=== PATIENT | female | born 1955 | race African-American/Black ===

== ENCOUNTER 2019-03-06 20:27 | Inpatient (IN) | payer OTHER ==
[~2019-03-06] VITALS: Ht 165.1 cm; Wt 75.9 kg
[~2019-03-06 20:27] MED LIST: GLIPIZIDE ER2.5 MG; HCTZ; ZOCOR 10 MG TAB10 MG
[2019-03-06 20:29] VITALS: BP 153/81
[2019-03-06] MEDS ORDERED: NORVASC 2.5 MG2.5 M1 PO (20:57)
[2019-03-06] MEDS ORDERED: ASA81BEC PO (20:57)
[2019-03-06] MEDS ORDERED: NEURONTIN100 MG PO (20:58)
[2019-03-06] MEDS ORDERED: MIRALAX119 GM PO (20:58)
[2019-03-06] MEDS ORDERED: HUMALOG100 UNIT/1 SUBQ (20:58)
[2019-03-06 21:01] LABS: ABSOLUTE NEUTROPHILS 13.6 thou/uL (1.4-8.2); BASOPHILS 0.6 % (0.0-2.0); HEMATOCRIT 43.9 % (37.0-47.0); HEMOGLOBIN 14.4 gm/dL (12.0-15.0); LYMPHOCYTES 6.3 % (24.0-44.0); MCH 28.6 pg (26.0-34.0); MCHC 32.9 g/dL (28.0-37.0); MCV 86.9 fL (80.0-100.0); MONOCYTES 4.1 % (1.0-8.0); PLATELET COUNT 245 thou/uL (150-400); RBC 5.04 mil/uL (4.20-5.00); RDW 13.8 % (10.5-14.5); WBC 15.3 thou/uL (4.0-11.0)
[2019-03-06 21:05] LABS: CALCIUM 10.3 mg/dL (8.5-10.1); CREATININE 0.9 mg/dL (0.6-1.0); POTASSIUM 3.8 mmol/L (3.5-5.1)
[2019-03-06 21:14] LABS: TROPONIN-I 0.07 ng/mL (<0.06)
[2019-03-06 21:27] LABS: URINE BILIRUBIN NEGATIVE (Negative); URINE BLOOD TRACE (Negative); URINE CLARITY CLEAR; URINE COLOR YELLOW; URINE GLUCOSE-RANDOM* 1+ (Negative); URINE KETONES TRACE (Negative); URINE NITRITE-REFLEX NEGATIVE (Negative); URINE PROTEIN (DIPSTICK) 1+ (Negative); URINE SPECIFIC GRAVITY >= 1.030 (1.005-1.035)
[2019-03-06 21:28] LABS: URINE LEUKOCYTES-REFLEX 1+ (Negative)
[2019-03-06 21:42] LABS: BACTERIA-REFLEX None Seen /HPF (None Seen); CASTS None Seen /LPF (None Seen); CRYSTALS None Seen /LPF (None Seen); MUCUS 0-3 Light strn/LPF (None Seen); SQUAMOUS 4-10 Moderate /LPF (0-3); URINE RBC 0-2 Rare /HPF (0-2); WBC CLUMPS Few (None Seen); YEAST-REFLEX Present (None Seen)
[2019-03-06 22:14] LABS: AMP/METHAMP Negative (Negative); BARBITURATES Negative (Negative); BENZODIAZEPINES Negative (Negative); COCAINE Negative (Negative); METHADONE Negative (Negative); OPIATES Negative (Negative); PCP Negative (Negative)
[2019-03-06 23:33] VITALS: BP 135/75
[2019-03-07 00:19] VITALS: BP 151/80
[2019-03-07] MEDS ORDERED: LEVEMIR100 UNIT/1 SUBQ (01:35)
[2019-03-07] MEDS ORDERED: GLUCOPHAGE1000 MG PO (01:37)
[2019-03-07] MEDS ORDERED: TOPROL XL50 MG PO (01:37)
[2019-03-07] MEDS ORDERED: SENNA PLUS TAB1 EACH PO (01:38)
[2019-03-07] MEDS ORDERED: TYLENOL EXTRA500 MG PO (01:39)
[2019-03-07] MEDS ORDERED: VITAMIN D1000 UNI2 PO (01:40)
[2019-03-07 04:00] LABS: HEMATOCRIT 35.8 % (37.0-47.0); MCH 28.7 pg (26.0-34.0); MCHC 33.1 g/dL (28.0-37.0); MCV 86.7 fL (80.0-100.0); RBC 4.13 mil/uL (4.20-5.00); RDW 13.8 % (10.5-14.5)
[2019-03-07 04:01] LABS: HEMOGLOBIN 11.8 gm/dL (12.0-15.0)
[2019-03-07 04:13] VITALS: BP 143/79
[2019-03-07 04:28] LABS: ANION GAP 10 mmol/L (7-16); BUN 15 mg/dL (7-18); CALCIUM 9.2 mg/dL (8.5-10.1); CHLORIDE 107 mmol/L (98-107); CO2 25 mmol/L (21-32); CREATININE 0.7 mg/dL (0.6-1.0); GLUCOSE 114 mg/dL (74-106); POTASSIUM 3.8 mmol/L (3.5-5.1); SODIUM 142 mmol/L (136-145); TROPONIN-I <0.06 ng/mL (<0.06)
[2019-03-07 07:37] VITALS: BP 152/86
--- NOTE | 2019-03-07 07:45 | NUR ---
PT ARRIVED TO UNIT APPROX 0015; CAME FROM [facility]. BASELINE MENTATION IS CONFUSED BUT FOLLOWS COMMANDS; SENT TO ER BY EMS D/T LETHARGY AND NOT EATING FOR 3 DAYS. FOUND TO HAVE UTI; STARTED ON IV FLUIDS AND ABX. WOULD OCCASIONALLY MUTTER 1-2 WORDS AND FOLLOW VERY SIMPLE COMMANDS BUT OTHER GILMAN JUST STARED AROUND; GRINDS TEETH OR CHEWS ON BLANKET. HAS BEEN SR ON TELE, NO TEMPS OVERNIGHT. NO APPARENT PAIN OR SOB. INCONT BOTH BOWEL AND BLADDER, SKIN INTACT. NO OTHER CONCERNS, SHIFT REPORT GIVEN AT 0700.
[2019-03-07 11:15] VITALS: BP 147/91
[2019-03-07 15:23] VITALS: BP 150/86
--- NOTE | 2019-03-07 15:33 | NUR ---
PT WITH POOR APPETITE...ATE 10% OF BREAKFAST BUR 95% OF LUNCH...NEEDS TO BE FED...SPEECH TRIED SWALLOW EVAL BUT SHE WAS TOO TIRED TO EVALUATE...WILL TRY AGAIN SATURDAY..
[2019-03-07 19:25] VITALS: BP 142/88
[2019-03-08] VITALS (7 sets, daily range): BP systolic 149–175; BP diastolic 67–98
[2019-03-08 05:27] LABS: BASOPHILS 0.5 % (0.0-2.0); EOSINOPHILS 1.6 % (0.0-3.0); HEMATOCRIT 36.5 % (37.0-47.0); HEMOGLOBIN 12.5 gm/dL (12.0-15.0); LYMPHOCYTES 30.3 % (24.0-44.0); MCH 29.7 pg (26.0-34.0); MCHC 34.2 g/dL (28.0-37.0); MCV 86.9 fL (80.0-100.0); MONOCYTES 8.4 % (1.0-8.0); PLATELET COUNT 189 thou/uL (150-400); POLYS 59.2 % (36.0-66.0); RBC 4.19 mil/uL (4.20-5.00); RDW 14.1 % (10.5-14.5); WBC 5.1 thou/uL (4.0-11.0)
[2019-03-08 05:37] LABS: ALBUMIN 2.8 g/dL (3.4-5.0); CALCIUM 9.1 mg/dL (8.5-10.1); CREATININE 0.7 mg/dL (0.6-1.0); MAGNESIUM 1.5 mg/dL (1.8-2.4); PHOSPHORUS 3.9 mg/dL (2.5-4.9); POTASSIUM 3.6 mmol/L (3.5-5.1); TOTAL BILIRUBIN 0.3 mg/dL (<0.1-1.0); TOTAL PROTEIN 6.1 g/dL (6.4-8.2)
--- NOTE | 2019-03-08 06:12 | NUR ---
ASSUMED CARE AT 1900. PT IN NO PAIN, NO S/S RESP DISTRESS OR NAUSEA. SLIGHTLY MORE ALERT THAN PREVIOUS NIGHT, WOULD OCCASIONALLY STATE FULL SENTENCES. MODERATE SWING TYPE LATHE OPERATOR AND LEG STRENGTH ON RIGHT, WEAK ON LEFT; BUT WOULD TRY TO FLEX FOOT AND SWING TYPE LATHE OPERATOR FINGERS. IVF INFUSING OVERNIGHT. HAD A MEDIUM SOFT/PASTY STOOL. INCONT MULTIPLE TIMES, REQUIRING A FULL BED CHANGE ONCE. CRUSHED HS MEDS IN APPLESAUCE, BUT PT TOOK A LONG TIME TO SWALLOW AND REQUIRED MULTIPLE PROMPTS; HELD MIRALAX BECAUSE SHE WAS ALSO HOLDING LIQUIDS IN HER MOUTH RATHER THAN SWALLOWING. LOW MAG THIS AM, OBTAINED ORDER FOR REPLACEMENT. NO OTHER CONCERNS, WILL CONTINUE TO MONITOR.
--- NOTE | 2019-03-08 13:10 | EKG ---
[address] [place] [address] ELECTROCARDIOGRAM REPORT Name: TROY NICOLE Room #: 361-P ADM IN M.R.#: [id number] Admission: 03/06/19 Attend Phys: Dickson Weiner MD Discharge: Date of : 53 Report #: [id number] THIS REPORT FOR: //name// [facility] ED Test Date: 2019-03-06 Test Time: 20:41:50 Pat Name: TROY ROLDAN Department: Room: [facility] Gender: F Snuff Blender: WG : 1955 Requested By: Eric Arteaga Order Number: [id number] MD: Toni Casillas Measurements Intervals [place] Rate: 124 P: 53 SC: 128 QRS: -42 QRSD: 85 T: 52 QT: 344 QTc: 494 Interpretive Statements Sinus tachycardia Left axis deviation Low voltage, extremity leads Abnormal R-wave progression, late transition Borderline prolonged QT interval No previous ECG available for comparison Electronically Signed On 03-08-2019 13:10:27 COMPUTER FIELD TECHNICIAN by Toni Casillas [email or web address] <ELECTRONICALLY SIGNED> By: Toni Casillas MD, [facility] 03/08/19 1310 40 40 Toni Casillas MD, [facility] /EPI
--- NOTE | 2019-03-08 16:44 | NUR ---
assumed care this am. awake in bed. disoriented. follows commands and denies pain. incontinent of urine. external female catheter tried but patient too restless and active in bed. sr on monitor. npo until cleared by speech, holds food in mouth and coughs after swallowing.
[2019-03-09] VITALS (9 sets, daily range): BP systolic 147–185; BP diastolic 65–99
--- NOTE | 2019-03-09 05:35 | NUR ---
Patient continued to be alert and oriented to person and place only and she was otherwise confused/ unable to answer appropriately. Patient slept intermittently through the night.
[2019-03-09 05:41] LABS: ABSOLUTE NEUTROPHILS 2.3 thou/uL (1.4-8.2); BASOPHILS 0.3 % (0.0-2.0); EOSINOPHILS 1.8 % (0.0-3.0); HEMATOCRIT 38.5 % (37.0-47.0); HEMOGLOBIN 12.8 gm/dL (12.0-15.0); LYMPHOCYTES 29.4 % (24.0-44.0); MCH 28.7 pg (26.0-34.0); MCHC 33.1 g/dL (28.0-37.0); MCV 86.5 fL (80.0-100.0); MONOCYTES 9.2 % (1.0-8.0); PLATELET COUNT 201 thou/uL (150-400); POLYS 59.3 % (36.0-66.0); RBC 4.45 mil/uL (4.20-5.00); RDW 14.1 % (10.5-14.5); WBC 3.9 thou/uL (4.0-11.0)
[2019-03-09 06:05] LABS: ALBUMIN 2.9 g/dL (3.4-5.0); CALCIUM 9.2 mg/dL (8.5-10.1); CREATININE 0.6 mg/dL (0.6-1.0); MAGNESIUM 2.1 mg/dL (1.8-2.4); PHOSPHORUS 4.4 mg/dL (2.5-4.9); POTASSIUM 3.5 mmol/L (3.5-5.1); TOTAL BILIRUBIN 0.4 mg/dL (<0.1-1.0); TOTAL PROTEIN 6.4 g/dL (6.4-8.2)
--- NOTE | 2019-03-09 12:37 | NUR ---
DISCHARGE PLANNING. PATIENT RESIDES AT [facility], [facility] UNIT. PLAN IS FOR PATIENT TO RETURN TO [facility] ONCE MEDICALLY READY. CLINCAL UPDATES FAXED TO [facility]IA[facility] FOR [facility]. CALL PLACED TO [facility] TO NOTIFY. UNIT SW AWARE. FOLLOWING.
--- NOTE | 2019-03-09 13:00 | NUR ---
PT WAS COUGHING AND FOUND TO HAVE STUFFED A KLEENEX IN HER MOUTH.. STAFF REMOVED KLEENEX AND SUCTIONED HER...VIDEO SWALLOW WAS ALSO DONE AND IT WAS RECOMMENDED THAT SHE REMAIN NPO AT PRESENT..
--- NOTE | 2019-03-09 13:16 | NUR ---
INITIAL ASSESSMENT: Received consult. TABITHA reviewed chart and spoke with nursing and attending physician. Pt was admitted from [facility] due to sepsis. 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 TABITHA notified Louie Mcbride with the [facility] Public Fire Control Technician G s Office. Provided updates. Verbal consents obtained over the weekend through management consultant PA office. TABITHA requested guardianship ppwk to be faxed to [facility] to place on pt's chart. Pt to have a video swallow tomorrow. enterprise resource planner to fax clinical info to [place] for review. TABITHA is following to assist as needed with discharge planning.
--- NOTE | 2019-03-09 19:44 | NUR ---
PT WAS REPORTED TO HAVE FALLEN LAST AND TWICE TODAY AT [facility]. SHE REPORTS NOT USING ANY ASSISTED DEVICES PRIOR TO ADMISSION..DENIES PAIN AT PRESENT..
--- NOTE | 2019-03-10 02:07 | NUR ---
Patient maintained NPO status for NOC shift. Patient is working towards discharge goals. Nursing will continue to monitor.
[2019-03-10 05:30] VITALS: BP 140/88
[2019-03-10 05:56] LABS: HEMATOCRIT 40.3 % (37.0-47.0); HEMOGLOBIN 13.3 gm/dL (12.0-15.0); MCH 28.4 pg (26.0-34.0); MCV 86.1 fL (80.0-100.0); RBC 4.68 mil/uL (4.20-5.00); RDW 13.9 % (10.5-14.5); WBC 3.6 thou/uL (4.0-11.0)
[2019-03-10 06:00] LABS: CALCIUM 9.5 mg/dL (8.5-10.1); CREATININE 0.8 mg/dL (0.6-1.0); POTASSIUM 3.7 mmol/L (3.5-5.1)
[2019-03-10 07:38] VITALS: BP 179/96
[2019-03-10 08:10] LABS: APTT 22.6 Seconds (24.5-32.8); PROTIME 10.3 Seconds (9.3-11.4)
[2019-03-10 10:25] VITALS: BP 164/81
--- NOTE | 2019-03-10 13:51 | NUR ---
TABITHA reviewed chart and spoke with nursing and attending physician. Pt needs a peg tube. TABITHA provided attending physician with contact number for pt's legal guardian ([facility]) for consent for peg tube. TABITHA left voice message for Maryjo Valenzuela at the PA office to provide update and to request copy of guardianship ppwk to and to discuss status of Medicaid application. TABITHA also left message for TABITHA Shaikh at [facility] to provide update and to ask about guardianship and Medicaid status. TABITHA is following to assist as needed with discharge planning.
[2019-03-10 15:16] VITALS: BP 171/84
--- NOTE | 2019-03-10 16:21 | NUR ---
Pt on bedrest throughout shift. A & O x 1. Obeys commands and opens eyes in response to words. NPO. Chewing on blankets throughout the day.
[2019-03-10 17:21] LABS: BE(vivo) -1.8 mmol/L (-2 to +3); HCO3 21.2 mmol/L (22.0-26.0); PCO2 31.6 mmHg (35.0-45.0); PO2 64.8 mmHg (80.0-100.0); pH 7.444 (7.360-7.450); sO2 93.7 % (92.0-98.0)
--- NOTE | 2019-03-10 18:24 | NUR ---
Assumed care approx. 0700 this AM. Plan was for pt to get PEG tube today, but AM Lovenox given so pt to go to IR tomorrow for feeding tube placement. Pt started foaming at the mouth with frothy, white/clear saliva later this afternoon. Pt suctioned with yankauer but continued to have thick saliva and was working hard to breathe. Nasopharyngeal suctioning attempted but was unable to advance the catheter and the pt started to bleed some. HR sustaining 140-150. O2 sat dropped to 88%- 2LNC put on pt. Dr. Skinner notified of the situation. Orders for STAT chest x-ray for poss aspiration, STAT ABG and Q4H albuterol treatments ordered. Secretions became bloody, but likely due to trauma from the nasopharyngeal suction. Saliva secretions are back to white/clear. Results called back to Dr. Skinner. HR has been sustaining 130's-[address] Skinner ordered 2mg Morphine IV push ONETIME for anxiety. Will administer once verified by pharmacy and continue to monitor HR, breathing and secretions. Pt slowly progressing toward plan of care goals.
[2019-03-10 19:25] VITALS: BP 178/100
[2019-03-10 23:40] VITALS: BP 163/96
--- NOTE | 2019-03-10 23:41 | NUR ---
ASSUMED CARE AT 2300, ASSESSMENT COMPLETED. PT AWAKE IN BED, HAS FREQ CONGESTED COUGH WITH FROTHY WHITE SPUTUM. LUNGS COARSE. SUCTIONED PATIENT. IVF INFUSING. ST IN THE 120'S ON TELE. WILL CONTINUE TO MONITOR.
[2019-03-11 04:00] VITALS: BP 139/80
[2019-03-11 06:08] LABS: CALCIUM 9.2 mg/dL (8.5-10.1); CREATININE 0.8 mg/dL (0.6-1.0); MAGNESIUM 1.6 mg/dL (1.8-2.4); POTASSIUM 3.3 mmol/L (3.5-5.1)
[2019-03-11 07:29] VITALS: BP 147/83
--- NOTE | 2019-03-11 12:20 | NUR ---
TABITHA reviewed chart and spoke with nursing and attending physician. Paperwork received from the [facility] Public Food Critic's office for physician to complete and fax back for PA's signature, for consent for peg tube placement. Attending physician completed. TABITHA faxed to PA office and confirmed received with Ally. Awaiting signature from PA at this time. Signed consent to be faxed back to TABITHA. Pt will have peg tube placed today. TABITHA is following to assist as needed with discharge planning.
[2019-03-11 16:21] VITALS: BP 146/67
[2019-03-11 19:21] VITALS: BP 172/80
[2019-03-12] VITALS (7 sets, daily range): BP systolic 138–191; BP diastolic 61–111
--- NOTE | 2019-03-12 03:39 | NUR ---
ASSUMED CARE FROM DAY SHIFT PT ALERT AND ORIENTED TO SELF , VERBAL AT TIMES, NPO DUE ASPIRATION AND AM PEG TUBE PLACEMENT. PT INCONTINENT OF LARGE AMOUNT OF YELLOW URINE. PT PULLING AT TELEM WIRES AND 02 , SAT 98 ON ROOM AIR THEREFORE 02 WAS TAKEN OFF DUE PT CONTINUE TO PULL OFF OF FACE. ATTEMPTED TO TURN PT ,BUT PT CONITNUELY MOVE BACK AND FORTH IN BED. SKIN INTACT , BUT WILL CONITNUE TO MONITOR TURN STATUS. PHERESIS SPECIALIST SHOWS NSR 70 'S . WILL CONITUE WITH CURRENT PLAN OF CARE , PT RESTING WELL THROUGHOUT HOURLY ROUNDS.
[2019-03-12 06:17] LABS: CALCIUM 9.5 mg/dL (8.5-10.1); CREATININE 0.7 mg/dL (0.6-1.0); POTASSIUM 3.8 mmol/L (3.5-5.1)
--- NOTE | 2019-03-12 10:44 | NUR ---
TABITHA reviewed chart and spoke with nursing and attending physician. Pt to have peg tube placed today. TABITHA received signed consent forms late yesterday and provided to pt's nurse to place on chart. TABITHA spoke with Vane at the [facility] office regarding pt's Medicaid. Vane states that she will follow up with their business office to determine status of her Medicaid application. Plan is for pt to return to [facility] when medically stable. TABITHA is following to assist as needed with discharge planning.
--- NOTE | 2019-03-12 16:17 | NUR ---
Assumed care approx. 0700 this AM. Pt to GI lab approx. 1245 today for PEG tube placement. Pt pulling at wires and IV tubing-pt has pulled cardiac leads off several times. PEG tube intact with abdominal binder to protect so pt doesn't pull out the PEG. Maintenance fluids infusing per orders. Pt up to chair before procedure..MAX ASSIST. Pt was able to stand and pivot. Fleets enema given-pt had a small to moderate soft BM shortly after. Pt slowly progressing toward plan of care goals.
[2019-03-12 20:27] LABS: HEMATOCRIT 42.3 % (37.0-47.0); MCH 28.8 pg (26.0-34.0); MCHC 33.1 g/dL (28.0-37.0); MCV 87.1 fL (80.0-100.0); RBC 4.85 mil/uL (4.20-5.00); RDW 13.9 % (10.5-14.5); WBC 8.5 thou/uL (4.0-11.0)
--- NOTE | 2019-03-13 02:17 | NUR ---
ASSUMED CARE OF PATIENT AT 1900. BP ELEVATED, TREATED WITH PRN HYDRALAZINE. COFFEE GROUND EMESIS TWICE THIS SHIFT, DR GALLEGOS NOTIFIED BOTH TIMES. STAT KUBM CXR AND LABS ORDERED. ALSO PLACED PEG TUBE TO DEPENDENT DRAINAGE, SMALL AMOUNT OF BROWN OUTPUT NOTED. ROUNDED ON FREQUENTLY. INCONTINENT OF URINE. NOT PROGRESSING TOWARDS POC GOALS.
[2019-03-13 02:40] VITALS: BP 168/94
[2019-03-13 07:55] VITALS: BP 167/101
[2019-03-13] MEDS ORDERED: LANTUS SUBQ (09:20)
[2019-03-13] MEDS ORDERED: HUMALOG100 UNIT/1 SUBQ (09:21)
[2019-03-13] MEDS ORDERED: CEFPODOXIM100 MG/5 M PO (09:21)
[2019-03-13 11:45] LABS: HEMATOCRIT 37.3 % (37.0-47.0); HEMOGLOBIN 12.4 gm/dL (12.0-15.0); MCH 28.7 pg (26.0-34.0); MCHC 33.2 g/dL (28.0-37.0); MCV 86.4 fL (80.0-100.0); RBC 4.32 mil/uL (4.20-5.00); RDW 13.6 % (10.5-14.5); WBC 6.3 thou/uL (4.0-11.0)
--- NOTE | 2019-03-13 12:48 | NUR ---
ASSUMED PATIENT CARE AT 0715. PATIENT SLEEPING AT THAT TIME. AWAKENED AT 0900. NONVERBAL AT PRESENT. HAD LARGE COFFEE GROUND EMESIS THROUGHOUT LAST NIGHT. 200 ML COFFEE GROUND GASTRIC CONTENTS IN BAG TODAY. NO EMESIS THIS MORNING. SPOKE WITH DR. MENDEZ REGARDING COFFEE GROUND EMESIS. DR. MENDEZ NOTIFIED MATILDE FISHER. MATILDE ROUNDED AND FLUSHED PEG TUBE. NO RESIDUAL BUT TUBE HAS BEEN CONNECTED TO DEPENDENT DRAINAGE. FLUID IN TUBING NOW CLEAR. GOT THE OK TO START TUBE FEEDINGS NOW. AWAITING ORDER FOR WHICH TUBE FEEDING TO USE. PATIENT RESTLESS AND MOVES AROUND ALOT IN BED. WILL NOT STAY ON HER SIDE. FALL PRECAUTIONS IN PLACE.
--- NOTE | 2019-03-13 13:51 | NUR ---
Nutrition: RD will order tube feeds of Glucerna 1.2 to slowly reach goal of 55 mL/hr. Pt is refeeding syndrome risk. Keep tube feeds at 20 mL/hr first 24 hrs and monitor K+, Mg, Phos-replete as appropriate.
--- NOTE | 2019-03-13 13:54 | NUR ---
DISCHARGE NOTE: TABITHA reviewed chart and spoke with nursing and attending physician. Discharge orders written for pt to return to [facility] today. meeting/event planner coordinated. TABITHA notified [facility] office case picker, Louie Mcbride, of discharge. Consent given for discharge. TABITHA notified by nursing that pt was having trouble with her peg tube. Awaiting input from GI about peg tube use and to determine if pt is able to tolerate tube feedings prior to discharge. meeting/event planner to fax discharge orders/summary to the [facility] office. If pt is not discharged today, and is ready over the weekend, contacte [facility] acute liaison to coordinate discharge. Pt will need w/c van transportation. Chart copy will need to be updated. Updated discharge orders/summary will need to be faxed to the facility. TABITHA is available to assist as needed. [facility]-- Liaison: [phone]
[2019-03-13 15:09] VITALS: BP 138/51
[2019-03-13 19:59] VITALS: BP 139/78
[2019-03-13 22:30] VITALS: BP 159/72
--- NOTE | 2019-03-14 02:06 | NUR ---
PATIENT ARRIVED VIA BED FROM 3W ROOM 361 TO ROOM 464 AT 2227 WITH NURSE AND WOODWORK TEACHER. PATIENT ALERT TO NAME AND PLEASANT. IVF INFUSING PER ORDER. ABDOMINAL BINDER IN PLACE FOR PROTECTION OF PEG TUBE. PATIENT MOVES SELF IN BED. RESTING QUIETLY AT TIME OF NOTE WILL MONITOR.
--- NOTE | 2019-03-14 04:37 | NUR ---
PATIENT ALERT AND ORIENTED TO SELF. TRANSFERED FROM [facility] AT 2227. IVF INFUSING W/O COMPLICATION. REMAINS NPO. BS MONITORED PER ORDER. PATIENT TURNS SELF. ABDOMINAL BINDER IN PLACE. TUBE FEEDING OF GLUCERNA TO BEGIN ON AM SHIFT STARTING AT 20ML/HR PER PEG WITH THE GOAL OF 55ML/HR. INCONTINENT OF B/B. RESTING QUIETLY. WILL MONITOR.
[2019-03-14 09:06] VITALS: BP 166/67
[2019-03-14 15:47] VITALS: BP 160/66
--- NOTE | 2019-03-14 16:50 | NUR ---
VITAL SIGNS STABLE. PEG TUBE FEEDING INITIATED AT 1035 RUNNING AT 20 ML/HR. WELL TOLERATED. NO RESIDUAL. MEDICATION GIVEN THOUGH PEG TUBE. LINE PATENT AND FLUSHING WITH 100 CC WATER. PT. IS CHEWING ON HER ARM, CLOTHES, IV LINE. IV TEAM INSERTED NEW IV AFTER OLD ONE INFILTRATED. IV SITE SECURED WITH TOWEL AND KURLEX. DISCHARGE ORDERS GIVEN BY DR. MENDEZ. PER CM NOTE TRIED TO CALL [facility]. NO RESPONSE. CALLED MAIN NUMBER. SPOKE TO CHARGE NURSE TO [employer]GANZISE TRANSPORTATION AND REPORT GIVEN. FAXED DISCHARGE SUMMMARY, ORDERS, PEG TUBE FEEDING ADVANCEMENT PER GI ORDER. TRANSPORTATION SCHEDULED BY WHEELCHAIR AROUND [id number]. MONITORING PATINET WILL ENDORSE TO IN HOME NANNY.
== END 2019-03-14 18:49 | DRG 871 ==
LOC: ER 20:27 → EROBS 21:35 → 3W 21:35 → 4W 03-13 22:38
PROVIDERS: Emergency Medicine; Hospitalist; Internal Medicine Gastroenterology; Nurse Practitioner Acute Care; Nurse Practitioner Family; ADMIT Internal Medicine
PROC: 0DH63UZ Insertion of Feeding Device into Stomach, Percutaneous Approach (ICD-10-PCS; principal; 2019-03-12)
DX: A41.9 Sepsis, unspecified organism (principal); G92 Toxic encephalopathy; J69.0 Pneumonitis due to inhalation of food and vomit; E43 Unspecified severe protein-calorie malnutrition; K29.81 Duodenitis with bleeding; K29.71 Gastritis, unspecified, with bleeding; N12 Tubulo-interstitial nephritis, not specified as acute or chronic; Z43.1 Encounter for attention to gastrostomy; I10 Essential (primary) hypertension; E11.9 Type 2 diabetes mellitus without complications; F03.90 Unspecified dementia, unspecified severity, without behavioral disturbance, psychotic disturbance, mood disturbance, and anxiety; E11.649 Type 2 diabetes mellitus with hypoglycemia without coma; R13.10 Dysphagia, unspecified; E87.6 Hypokalemia; E83.42 Hypomagnesemia; K20.9 Esophagitis, unspecified; G47.00 Insomnia, unspecified; Z88.0 Allergy status to penicillin; Z88.2 Allergy status to sulfonamides; Z88.8 Allergy status to other drugs, medicaments and biological substances; Z88.6 Allergy status to analgesic agent; Z91.040 Latex allergy status; Z86.73 Personal history of transient ischemic attack (TIA), and cerebral infarction without residual deficits; Z79.82 Long term (current) use of aspirin; Z79.899 Other long term (current) drug therapy; Z68.27 Body mass index [BMI] 27.0-27.9, adult
CPT/HCPCS: 10045; 10879; 62110; 62900; 70005